=== PATIENT | male | born 1950 | race Hispanic/Latino ===

== ENCOUNTER 2018-03-14 14:33 | Outpatient (CLI) | payer OTHER | END 2018-03-14 14:34 | disposition home or self-care (01) | LOC: DTY/OP 14:33 | PROVIDERS: ATTEND Family Medicine | DX: E66.9 Obesity, unspecified (principal); I10 Essential (primary) hypertension | CPT/HCPCS: 97802 ==

== ENCOUNTER 2018-06-05 14:38 | Outpatient (CLI) | payer OTHER ==
[2018-06-05 16:41] LABS: Hemoglobin 14.3 g/dL (14.0-18.0); Mean Corpuscular HGB CONC 31.6 g/dL (32.0-36.0); Mean Corpuscular Hemoglobin 30.7 pg (27.0-31.0); Mean Platelet Volume 8.2 fL (7.4-10.4); Platelet Count 273 thou/uL (130-400); RBC Distribution Width 11.8 % (11.5-14.5); Red Blood Cell (RBC) Count 4.65 mill/uL (4.70-6.10); White Blood Cell (WBC) Count 7.2 thou/uL (4.8-10.8)
[2018-06-05 16:53] LABS: Anion Gap 14 mmol/L (10-20); BUN (Urea Nitrogen) 18 mg/dL (8.4-25.7); Calc. Creatinine Clearance 0 mL/min (70-130); Calcium 9.2 mg/dL (7.8-10.44); Carbon Dioxide 23 mmol/L (23-31); Chloride 105 mmol/L (98-107); Estimated GFR-MDRD 81; Glucose 91 mg/dL (80-115); Potassium 5.1 mmol/L (3.5-5.1); Sodium 137 mmol/L (136-145)
[2018-06-05 17:03] LABS: Eosinophils 2 % (0-10); Lymphocytes 34 % (21-51); MDiff Complete? YES; Monocytes 2 % (0-10); Neutrophil 61 % (42-75); PLT Morphology Comment Appears Adequate; RBC Morphology Normal
--- NOTE | 2018-06-06 12:37 | EKG ---
Test Reason : Blood Pressure : / mmHG Vent. Rate : 070 BPM Atrial Rate : 070 BPM P-R Int : 162 ms QRS Dur : 096 ms QT Int : 382 ms P-R-T Axes : 041 058 -12 degrees QTc Int : 412 ms Normal sinus rhythm Cannot rule out Inferior infarct , age undetermined Abnormal ECG When compared with ECG of 07-DEC-2000 06:49, Minimal criteria for Inferior infarct are now Present ST no longer elevated in Inferior leads T wave inversion now evident in Inferior leads Confirmed by DR. Maria Ines JAIN ([id number]) on 06/06/2018 12:36:56 PM Referred By: STACY Confirmed By:DR. Maria Ines JAIN
== END 2018-06-05 14:39 | disposition home or self-care (01) ==
LOC: LABBT 14:38
PROVIDERS: ATTEND Surgery
DX: Z01.818 Encounter for other preprocedural examination (principal); K40.90 Unilateral inguinal hernia, without obstruction or gangrene, not specified as recurrent
CPT/HCPCS: 80048; 85025; 93005; 93010

== ENCOUNTER 2018-06-14 06:02 | Day surgery (SDC) | payer OTHER ==
[2018-06-05 14:54] VITALS: BMI 34.0
[2018-06-14] MEDS ORDERED: CEFAZOLIN 2 GM/50 ML BAG ONE (06:47)
[2018-06-14] MEDS ORDERED: Bupivacaine/Epinephrine 0.25% 30 ML VIAL ONE (09:00)
[2018-06-14] MEDS ORDERED: Bupivacaine PF 0.5% 30 ML VIAL ONE ×2 (09:00→10:42)
[2018-06-14] MEDS ORDERED: Fentanyl 100 MCG/2 ML VIAL ONE ×3 (09:02→12:21)
[2018-06-14] MEDS ORDERED: HYDROmorphone 2 MG/ML VIAL ONE (11:11)
[2018-06-14] MEDS ORDERED: Lidocaine 1% PF 5 ML VIAL ONE (15:00)
[2018-06-14] MEDS ORDERED: Ondansetron PF 4 MG/2 ML Vial ONE (15:00)
[2018-06-14] MEDS ORDERED: Dexamethasone 20 MG/5 ML VIAL ONE (15:00)
[2018-06-14] MEDS ORDERED: PROPOFOL 200 MG/20 ML VIAL ONE (15:00)
[2018-06-14] MEDS ORDERED: Ketorolac Tromethamine 30 MG/ML VIAL ONE (15:00)
--- NOTE | 2018-06-15 09:24 | PDOC.OP ---
Operative Note - Operative Note Operative Note: PROCEDURE: Inguinal hernia repair SURGEON: Taryn Zambrano M.D. DATE OF PROCEDURE: 06/14/2018 PREOPERATIVE DIAGNOSIS: Inguinal hernia, right POSTOPERATIVE DIAGNOSIS: Inguinal hernia,, right, indirect HISTORY: Patient with swelling in the right groin which goes away when he lies flat. He has a large inguinal hernia on examination on that side with no palpable hernia on the opposite side. He had symptoms of benign prostatic hypertrophy and was started on Flomax with improvement in the symptoms. Recommendation was made to proceed with right inguinal hernia repair with mesh. FINDINGS: Large indirect hernia defect containing small intestine. 2 large cord lipomas resected. Repaired with extra large PerFix plug and patch. DESCRIPTION OF PROCEDURE: After informed consent was obtained and appropriate preoperative antibiotics were administered, the patient was taken to the operating room, placed in the supine position and general endotracheal anesthesia was administered. The inguinal area was prepped and draped in the standard sterile fashion and local anesthesia was infused to the skin and subcutaneous tissues overlying the inguinal canal. An oblique skin incision was made in the direction of the skin crease. Dissection was carried down to the external oblique aponeurosis which was carefully incised in the direction of its fibers through the enlarged external ring. The aponeurosis was mobilized off the underlying structures. The ilioinguinal nerve was attenuated and would've required extensive manipulation to preserve so this was divided high. The inguinal cord was mobilized at the level of the pubic tubercle. The cremasteric muscles were divided and the cord contents and floor of the canal were carefully examined. A large indirect hernia was identified. The patient also had 2 large cord lipomas which were dissected free down to level of the internal ring, ligated and excised. The hernia sac was dissected free of the cord contents down to the level of the peritoneal reflection. The hernia sac was opened and the contents reduced into the abdominal cavity. The base of the hernia sac was encircled with a pursestring 3-0 Vicryl suture. The pursestring suture was secured and the hernia sac was resected. The base of the hernia sac was tied to the base of the Perfix plug. The Perfix plug was then placed into the internal ring and was tacked down to the internal oblique in a couple of locations. The patch was then secured to the pubic tubercle inferiorly, to the shelving edge of the inguinal ligament laterally, and secured at intervals to the internal oblique medially. A keyhole slit was created and placed around the inguinal cord contents and secured, and the ends secured to each other and to the underlying plug. The operative site was irrigated and hemostasis verified. Local anesthesia was infused into the muscles of the internal oblique medially. The On-Q pump was then tunneled into the wound and placed into the inguinal canal and primed. The external oblique aponeurosis was then closed with 2-0 Vicryl suture, taking care not to pull up any of the underlying cord contents or the On-Q pump tubing into the closure, and the remainder of the local was infused into the subcutaneous tissues circumferentially and to the skin. Claudia's fascia was reapproximated with 3-0 Monocryl sutures and the skin was closed with 4-0 subcuticular Monocryl sutures. Dermabond dressings were placed and the On-Q tubing secured with a Steri-Strip, and dressed with Dermabond and Tegaderm. The patient was extubated and taken to the recovery room in good condition. Estimated blood loss was minimal. There were no complications. Specimen is hernia sac.
== END 2018-06-14 14:35 | disposition home or self-care (01) ==
LOC: SDC 06:02
PROVIDERS: ATTEND Surgery
PROC: 0YQ50ZZ Repair Right Inguinal Region, Open Approach (ICD-10-PCS; principal; 2018-06-14)
DX: K40.90 Unilateral inguinal hernia, without obstruction or gangrene, not specified as recurrent (principal); D17.6 Benign lipomatous neoplasm of spermatic cord; I10 Essential (primary) hypertension; E66.9 Obesity, unspecified; K21.9 Gastro-esophageal reflux disease without esophagitis; N40.0 Benign prostatic hyperplasia without lower urinary tract symptoms; Z79.82 Long term (current) use of aspirin; Z79.899 Other long term (current) drug therapy
CPT/HCPCS: 88302; 96374; A4306; C1781; J1100; J1170; J1885; J2001; J2405; J2704; J3010; S0020

== ENCOUNTER 2021-11-22 09:33 | Emergency (ER) | payer BC | END 2021-11-22 10:45 | disposition home or self-care (01) | LOC: ERS 09:33 | DX: M54.41 Lumbago with sciatica, right side (principal); I10 Essential (primary) hypertension | CPT/HCPCS: 99283 ==

== ENCOUNTER 2022-02-03 03:21 | Emergency (ER) | payer BC ==
[2022-02-03] MEDS ORDERED: Ondansetron PF 4 MG/2 ML Vial ONE (03:54)
[2022-02-03] MEDS ORDERED: Morphine 4 MG/ML VIAL ONE ×3 (03:54→06:56)
[2022-02-03 04:49] LABS: ALT (SGPT) 17 U/L (8-55); AST (SGOT) 19 U/L (5-34); Albumin 4.3 g/dL (3.4-4.8); Alkaline Phosphatase 61 U/L (40-110); Anion Gap 17 mmol/L (10-20); BUN (Urea Nitrogen) 21 mg/dL (8.4-25.7); Bilirubin, Total 0.3 mg/dL (0.2-1.2); Calc. Creatinine Clearance 0 mL/min (70-130); Calcium 9.8 mg/dL (7.8-10.44); Carbon Dioxide 24 mmol/L (23-31); Chloride 102 mmol/L (98-107); Estimated GFR 48; Globulin 3.7 g/dL (2.4-3.5); Glucose 132 mg/dL (83-110); Lipase 27 U/L (8-78); Potassium 4.4 mmol/L (3.5-5.1); Sodium 139 mmol/L (136-145)
[2022-02-03 05:16] LABS: #Lymphocytes 1.1 thou/uL (1.20-3.40); #Monocytes 0.6 thou/uL (0.11-0.59); %Basophils 0.1 % (0.0-1.0); %Eosinophils 0.2 % (0.0-10.0); %Lymphocytes 6.5 % (21.0-51.0); %Monocytes 3.8 % (0.0-10.0); %Neutrophils 89.4 % (42.0-75.0); Anisocytosis SLIGHT = 6-15 cells (100X) (0-5/hpf); Hemoglobin 10.1 g/dL (14.0-18.0); MDiff Complete? YES; Mean Corpuscular HGB CONC 29.7 g/dL (32.0-36.0); Mean Corpuscular Hemoglobin 21.1 pg (27.0-31.0); Mean Platelet Volume 9.2 fL (7.4-10.4); Platelet Count 500 thou/uL (130-400); RBC Distribution Width 18.8 % (11.5-14.5); Red Blood Cell (RBC) Count 4.79 mill/uL (4.70-6.10); White Blood Cell (WBC) Count 16.8 thou/uL (4.8-10.8)
[2022-02-03 06:29] LABS: Bilirubin Negative (Negative); Blood, Urine Negative (Negative); Clarity Clear (Clear); Glucose, Urine (Dipstick) Normal (Negative); Ketone, Urine 10 mg/dL (Negative); Leukocyte Negative Leu/uL (Negative); Nitrite Negative (Negative); Protein, Urine (Dipstick) Negative (Neg-Trace); Specific Gravity, Urine 1.043 (1.002-1.036); Urobilinogen Normal mg/dL (Less than 2); pH, Urine 7.5 (5.0-9.0)
[2022-02-03] MEDS ORDERED: HYDROcodone/Acetaminophen 5/325 mg Tablet ONE (07:03)
[2022-02-03] MEDS ORDERED: Iopamidol 370 76% 100 ML VIAL ONE (08:00)
== END 2022-02-03 08:06 | disposition home or self-care (01) ==
LOC: ERS 03:21
DX: N13.2 Hydronephrosis with renal and ureteral calculous obstruction (principal); I10 Essential (primary) hypertension; Z79.899 Other long term (current) drug therapy
CPT/HCPCS: 74177; 80053; 81003; 83605; 83690; 85025; 87077; 87086; 87186; 93005; 96374; 96375; 96376; J2270; J2405; Q9967

== ENCOUNTER 2022-02-07 16:42 | Inpatient (IN) | payer BC, MEDICARE ==
[2022-02-07] MEDS ORDERED: Cefepime 2 GM VIAL ONE ×2 (17:09→19:36)
[2022-02-07 17:22] LABS: Hemoglobin 8.9 g/dL (14.0-18.0); Mean Corpuscular HGB CONC 30.1 g/dL (32.0-36.0); Mean Corpuscular Hemoglobin 21.2 pg (27.0-31.0); Mean Corpuscular Volume 70.6 fL (78.0-98.0); Mean Platelet Volume 10.8 fL (7.4-10.4); Platelet Count 311 thou/uL (130-400); RBC Distribution Width 18.1 % (11.5-14.5); Red Blood Cell (RBC) Count 4.19 mill/uL (4.70-6.10)
[2022-02-07 17:29] LABS: INR-International Normal Ratio 1.2; PTT 31.5 sec (22.9-36.1); Prothrombin Time 15.5 sec (12.0-14.7)
[2022-02-07] MEDS ORDERED: VANCOMYCIN 2 GRAM/500 ML BAG 2 GM in Premix Bag 1 BAG IVPB SCH (17:45)
[2022-02-07 17:47] LABS: ALT (SGPT) 23 U/L (8-55); AST (SGOT) 53 U/L (5-34); Albumin 3.2 g/dL (3.4-4.8); Alkaline Phosphatase 55 U/L (40-110); Anion Gap 17 mmol/L (10-20); BUN (Urea Nitrogen) 28 mg/dL (8.4-25.7); Band 12 % (5-11); Bilirubin, Total 0.5 mg/dL (0.2-1.2); CK (CPK) 39 U/L (30-200); Calc. Creatinine Clearance 0 mL/min (70-130); Carbon Dioxide 23 mmol/L (23-31); Chloride 97 mmol/L (98-107); Estimated GFR 37; Globulin 4.6 g/dL (2.4-3.5); Glucose 105 mg/dL (83-110); Hypochromia SLIGHT = 6-15 cells (100X) (0-5/hpf); Lipase 80 U/L (8-78); Lymphocytes 6 % (21-51); MDiff Complete? YES; Microcytosis MODERATE=15-30 cells (100X) (0-5/hpf); Monocytes 15 % (0-10); Neutrophil 67 % (42-75); Platelet Morphology Comment Appears Adequate; Polychromasia SLIGHT = 2-3 cells (100X) (0-2/hpf); Potassium 5.3 mmol/L (3.5-5.1); Protein, Total 7.8 g/dL (5.8-8.1); Sodium 132 mmol/L (136-145)
[2022-02-07 18:02] LABS: CKMB 0.4 ng/mL (0-6.6)
[2022-02-07 19:06] LABS: Bilirubin Negative (Negative); Blood, Urine 1+ (Negative); Clarity Turbid (Clear); Glucose, Urine (Dipstick) Normal (Negative); Ketone, Urine Trace mg/dL (Negative); Leukocyte 500 Leu/uL (Negative); Nitrite Negative (Negative); Protein, Urine (Dipstick) 50 mg/dL (Neg-Trace); Specific Gravity, Urine 1.024 (1.002-1.036); Squamous Epithelial None Seen HPF (0-3); Urobilinogen Normal mg/dL (Less than 2); WBC/HPF Greater than 50 HPF (0-3)
[2022-02-07 19:07] LABS: Bacteria/HPF 1+ HPF (None Seen)
[2022-02-07] MEDS ORDERED: Aspirin Chewable 81 MG TAB ONE (19:29)
[2022-02-07 19:34] LABS: SARS-CoV-2 NAA Rapid Test Not Detected (NotDetected)
[2022-02-07] MEDS ORDERED: Sodium Chloride 0.9% 100 ML ONE (19:36)
[2022-02-07] MEDS ORDERED: HYDROcodone/Acetaminophen 5/325 mg Tablet PO PRN (20:20)
[2022-02-07] MEDS ORDERED: Promethazine HCl 25 MG/ML VIAL IM PRN (20:20)
[2022-02-07] MEDS ORDERED: Ondansetron HCl/PF 4 MG/2 ML Vial IVP PRN (20:20)
[2022-02-07] MEDS ORDERED: Ondansetron PF 4 MG/2 ML Vial IVP PRN (20:20)
[2022-02-07] MEDS ORDERED: Acetaminophen 325 MG TAB PO PRN (20:20)
[2022-02-07] MEDS ORDERED: Promethazine HCl 25 MG/ML VIAL IVPB PRN (20:20)
[2022-02-07] MEDS ORDERED: Ondansetron ODT 4 MG TAB PO PRN (20:20)
[2022-02-07] MEDS ORDERED: Iopamidol 30 ML ONE (20:24)
[2022-02-07] MEDS ORDERED: Fentanyl 100 MCG/2 ML VIAL ONE ×2 (20:39→22:30)
[2022-02-07] MEDS ORDERED: Phenylephrine 10 MG/ML VIAL ONE (20:58)
[2022-02-07] MEDS ORDERED: Dexamethasone 20 MG/5 ML VIAL ONE (20:58)
[2022-02-07] MEDS ORDERED: Ondansetron PF 4 MG/2 ML Vial ONE (20:58)
[2022-02-07] MEDS ORDERED: PROPOFOL 200 MG/20 ML VIAL ONE (20:58)
[2022-02-07] MEDS ORDERED: Lidocaine 1% PF 5 ML VIAL ONE (20:58)
[2022-02-07] MEDS ORDERED: Lorazepam 2 MG/ML VIAL IM PRN (20:59)
[2022-02-07] MEDS ORDERED: Lorazepam 1 MG TAB PO PRN (20:59)
[2022-02-07] MEDS ORDERED: Vancomycin 1 GM in Premix Bag 1 BAG IVPB SCH (21:00)
[2022-02-07] MEDS ORDERED: Thiamine HCl 200 MG/2 ML VIAL SLOW IVP SCH (21:00)
[2022-02-07] MEDS ORDERED: Electrolyte Replacement Protocol 1 EACH FS SCH (21:00)
[2022-02-07] MEDS ORDERED: Lorazepam 1 MG TAB PO SCH (21:00)
[2022-02-07] MEDS ORDERED: Folic Acid 1 MG TAB PO SCH (21:15)
[2022-02-07] MEDS ORDERED: Multivit, Therapeutic 1 TAB PO SCH (21:15)
[2022-02-07 23:32] VITALS: BMI 33.2
[2022-02-07 23:41] LABS: Amphetamine Not Detected (NotDetected); Barbiturates Screen Not Detected (NotDetected); Benzodiazepine Screen Not Detected (NotDetected); Cocaine Metabolite Screen Not Detected (NotDetected); Methadone Not Detected (NotDetected); Methamphetamine Not Detected (NotDetected); Opiate Screen Detected (NotDetected); Oxycodone Screen Not Detected (NotDetected); Phencyclidine (PCP) Not Detected (NotDetected); THC/Cannabinoid Screen Not Detected (NotDetected); Tricyclic Screen Not Detected (NotDetected)
[2022-02-08] MEDS: Sodium Chloride 0.9% 1,000 ML IV SCH ×3 (00:28→09:37)
[2022-02-08 00:33] LABS: Phosphorus 3.4 mg/dL (2.3-4.7)
[2022-02-08 00:40] LABS: Troponin I 0.043 ng/mL (< 0.028)
[2022-02-08 00:55] LABS: ALT (SGPT) 24 U/L (8-55); AST (SGOT) 25 U/L (5-34); Alkaline Phosphatase 52 U/L (40-110); Anion Gap 16 mmol/L (10-20); BUN (Urea Nitrogen) 28 mg/dL (8.4-25.7); Bilirubin, Total 0.3 mg/dL (0.2-1.2); Calc. Creatinine Clearance 59 mL/min (70-130); Calcium 8.1 mg/dL (7.8-10.44); Carbon Dioxide 22 mmol/L (23-31); Chloride 105 mmol/L (98-107); Estimated GFR 43; Globulin 2.7 g/dL (2.4-3.5); Glucose 114 mg/dL (83-110); Magnesium 2.3 mg/dL (1.6-2.6); Potassium 4.8 mmol/L (3.5-5.1); Protein, Total 5.7 g/dL (5.8-8.1); Sodium 138 mmol/L (136-145)
[2022-02-08] MEDS ORDERED: Cefepime 2 GM in Sodium Chloride 0.9% 100 ML IVPB SCH (05:00)
[2022-02-08] MEDS: Lorazepam 1 MG TAB PO SCH ×3 (05:32→21:58)
[2022-02-08 06:02] LABS: #Lymphocytes 0.7 thou/uL (1.20-3.40); #Monocytes 0.3 thou/uL (0.11-0.59); #Neutrophils 11.6 thou/uL (1.40-6.50); %Basophils 0.1 % (0.0-1.0); %Eosinophils 0.1 % (0.0-10.0); %Lymphocytes 5.5 % (21.0-51.0); %Monocytes 2.3 % (0.0-10.0); Hemoglobin 8.7 g/dL (14.0-18.0); Mean Corpuscular Hemoglobin 21.2 pg (27.0-31.0); Mean Corpuscular Volume 73.1 fL (78.0-98.0); Mean Platelet Volume 9.9 fL (7.4-10.4); Platelet Count 310 thou/uL (130-400); RBC Distribution Width 18.4 % (11.5-14.5); Red Blood Cell (RBC) Count 4.09 mill/uL (4.70-6.10); White Blood Cell (WBC) Count 12.6 thou/uL (4.8-10.8)
[2022-02-08 06:15] LABS: ALT (SGPT) 25 U/L (8-55); AST (SGOT) 25 U/L (5-34); Albumin 3.1 g/dL (3.4-4.8); Alkaline Phosphatase 56 U/L (40-110); Anion Gap 14 mmol/L (10-20); BUN (Urea Nitrogen) 25 mg/dL (8.4-25.7); Bilirubin, Total 0.3 mg/dL (0.2-1.2); Calc. Creatinine Clearance 68 mL/min (70-130); Calcium 8.6 mg/dL (7.8-10.44); Carbon Dioxide 22 mmol/L (23-31); Chloride 106 mmol/L (98-107); Estimated GFR 51; Globulin 3.7 g/dL (2.4-3.5); Glucose 121 mg/dL (83-110); Potassium 4.4 mmol/L (3.5-5.1); Protein, Total 6.8 g/dL (5.8-8.1); Sodium 138 mmol/L (136-145)
[2022-02-08 06:18] LABS: Troponin I 0.024 ng/mL (< 0.028)
[2022-02-08 11:31] LABS: Syphilis Antibody Nonreactive (Nonreactive); Syphilis Antibody Index 0.13 S/CO (<1.00 Non-Reactive)
[2022-02-08] MEDS: Folic Acid 1 MG TAB PO SCH (12:31)
[2022-02-08] MEDS: Multivit, Therapeutic 1 TAB PO SCH (12:31)
[2022-02-08] MEDS: Thiamine HCl 200 MG/2 ML VIAL SLOW IVP SCH ×2 (15:59→21:57)
[2022-02-08] MEDS: Cefepime 1 GM in Sodium Chloride 0.9% 100 ML IVPB SCH (16:01)
[2022-02-08] MEDS ORDERED: Lorazepam 1 MG TAB PO PRN (20:59)
[2022-02-08] MEDS ORDERED: Vancomycin 1.5 GRAM/300 ML BAG 1.5 GM in Premix Bag 1 BAG IVPB SCH (21:00)
[2022-02-09] MEDS: Lorazepam 1 MG TAB PO SCH ×4 (01:05→18:20)
[2022-02-09] MEDS: Sodium Chloride 0.9% 1,000 ML IV SCH ×4 (03:38→14:14)
[2022-02-09] MEDS: Cefepime 1 GM in Sodium Chloride 0.9% 100 ML IVPB SCH (05:31)
[2022-02-09 08:39] LABS: Hemoglobin 8.3 g/dL (14.0-18.0); Mean Corpuscular HGB CONC 29.1 g/dL (32.0-36.0); Mean Corpuscular Hemoglobin 21.2 pg (27.0-31.0); Mean Corpuscular Volume 72.9 fL (78.0-98.0); Mean Platelet Volume 9.8 fL (7.4-10.4); Platelet Count 364 thou/uL (130-400); RBC Distribution Width 18.7 % (11.5-14.5); Red Blood Cell (RBC) Count 3.92 mill/uL (4.70-6.10); White Blood Cell (WBC) Count 16.2 thou/uL (4.8-10.8)
[2022-02-09 08:57] LABS: ALT (SGPT) 28 U/L (8-55); AST (SGOT) 24 U/L (5-34); Albumin 2.9 g/dL (3.4-4.8); Alkaline Phosphatase 47 U/L (40-110); Anion Gap 15 mmol/L (10-20); BUN (Urea Nitrogen) 24 mg/dL (8.4-25.7); Bilirubin, Total 0.3 mg/dL (0.2-1.2); Calc. Creatinine Clearance 97 mL/min (70-130); Calcium 8.6 mg/dL (7.8-10.44); Carbon Dioxide 23 mmol/L (23-31); Chloride 109 mmol/L (98-107); Estimated GFR 78; Globulin 3.3 g/dL (2.4-3.5); Glucose 109 mg/dL (83-110); Magnesium 2.3 mg/dL (1.6-2.6); Potassium 3.7 mmol/L (3.5-5.1); Protein, Total 6.2 g/dL (5.8-8.1); Sodium 143 mmol/L (136-145)
[2022-02-09 09:22] LABS: Band 11 % (5-11); Hypochromia SLIGHT = 6-15 cells (100X) (0-5/hpf); Lymphocytes 6 % (21-51); MDiff Complete? YES; Microcytosis SLIGHT = 6-15 cells (100X) (0-5/hpf); Monocytes 8 % (0-10); Neutrophil 75 % (42-75); Platelet Morphology Comment Appears Adequate; Polychromasia SLIGHT = 2-3 cells (100X) (0-2/hpf)
[2022-02-09] MEDS: Folic Acid 1 MG TAB PO SCH (09:39)
[2022-02-09] MEDS: Multivit, Therapeutic 1 TAB PO SCH (09:39)
[2022-02-09] MEDS: Thiamine HCl 200 MG/2 ML VIAL SLOW IVP SCH ×2 (09:39→15:29)
[2022-02-09] MEDS: Tamsulosin HCl 0.4 MG CAP PO SCH (09:39)
[2022-02-09] MEDS ORDERED: Cefepime 2 GM in Sodium Chloride 0.9% 100 ML IVPB SCH (17:00)
[2022-02-09] MEDS ORDERED: AMPicillin 2 MG in Syringe 0 ML SLOW IVP SCH (18:00)
[2022-02-09] MEDS: AMPicillin 2 GM in Sodium Chloride 0.9% 100 ML IVPB SCH (18:32)
[2022-02-10] MEDS: AMPicillin 2 GM in Sodium Chloride 0.9% 100 ML IVPB SCH ×4 (00:44→20:00)
[2022-02-10] MEDS: Sodium Chloride 0.9% 1,000 ML IV SCH ×3 (05:09→16:30)
[2022-02-10 06:01] LABS: ALT (SGPT) 26 U/L (8-55); AST (SGOT) 21 U/L (5-34); Albumin 2.9 g/dL (3.4-4.8); Alkaline Phosphatase 51 U/L (40-110); Anion Gap 16 mmol/L (10-20); BUN (Urea Nitrogen) 19 mg/dL (8.4-25.7); Bilirubin, Total 0.3 mg/dL (0.2-1.2); Calc. Creatinine Clearance 88 mL/min (70-130); Calcium 8.5 mg/dL (7.8-10.44); Carbon Dioxide 21 mmol/L (23-31); Chloride 109 mmol/L (98-107); Estimated GFR 69; Globulin 3.1 g/dL (2.4-3.5); Glucose 90 mg/dL (83-110); Potassium 3.9 mmol/L (3.5-5.1); Sodium 142 mmol/L (136-145)
[2022-02-10 06:31] LABS: Band 10 % (5-11); Eosinophils 2 % (0-10); Hemoglobin 8.6 g/dL (14.0-18.0); Lymphocytes 15 % (21-51); MDiff Complete? YES; Mean Corpuscular HGB CONC 28.9 g/dL (32.0-36.0); Mean Corpuscular Hemoglobin 20.8 pg (27.0-31.0); Mean Corpuscular Volume 71.9 fL (78.0-98.0); Mean Platelet Volume 10.3 fL (7.4-10.4); Monocytes 8 % (0-10); Neutrophil 65 % (42-75); Platelet Count 356 thou/uL (130-400); RBC Distribution Width 18.7 % (11.5-14.5); Red Blood Cell (RBC) Count 4.15 mill/uL (4.70-6.10); White Blood Cell (WBC) Count 15.8 thou/uL (4.8-10.8)
[2022-02-10] MEDS: Folic Acid 1 MG TAB PO SCH (10:53)
[2022-02-10] MEDS: Tamsulosin HCl 0.4 MG CAP PO SCH (10:53)
[2022-02-10] MEDS: Multivit, Therapeutic 1 TAB PO SCH (10:53)
[2022-02-11] MEDS: AMPicillin 2 GM in Sodium Chloride 0.9% 100 ML IVPB SCH ×4 (00:59→18:21)
[2022-02-11] MEDS: Sodium Chloride 0.9% 1,000 ML IV SCH ×2 (01:37→04:25)
[2022-02-11 05:21] LABS: ALT (SGPT) 31 U/L (8-55); AST (SGOT) 23 U/L (5-34); Albumin 2.5 g/dL (3.4-4.8); Alkaline Phosphatase 46 U/L (40-110); Anion Gap 13 mmol/L (10-20); BUN (Urea Nitrogen) 12 mg/dL (8.4-25.7); Bilirubin, Total 0.6 mg/dL (0.2-1.2); Calc. Creatinine Clearance 102 mL/min (70-130); Calcium 7.7 mg/dL (7.8-10.44); Carbon Dioxide 24 mmol/L (23-31); Chloride 108 mmol/L (98-107); Estimated GFR 83; Globulin 2.5 g/dL (2.4-3.5); Glucose 97 mg/dL (83-110); Potassium 3.8 mmol/L (3.5-5.1); Sodium 141 mmol/L (136-145)
[2022-02-11 06:01] LABS: Band 17 % (5-11); Hemoglobin 7.7 g/dL (14.0-18.0); Hypochromia SLIGHT = 6-15 cells (100X) (0-5/hpf); Lymphocytes 13 % (21-51); MDiff Complete? YES; Mean Corpuscular HGB CONC 29.3 g/dL (32.0-36.0); Mean Corpuscular Hemoglobin 21.4 pg (27.0-31.0); Mean Corpuscular Volume 72.8 fL (78.0-98.0); Mean Platelet Volume 8.6 fL (7.4-10.4); Monocytes 8 % (0-10); Neutrophil 62 % (42-75); Platelet Count 357 thou/uL (130-400); Platelet Morphology Comment Appears Adequate; RBC Distribution Width 18.6 % (11.5-14.5); Red Blood Cell (RBC) Count 3.58 mill/uL (4.70-6.10)
[2022-02-11] MEDS: Multivit, Therapeutic 1 TAB PO SCH (08:37)
[2022-02-11] MEDS: Folic Acid 1 MG TAB PO SCH (08:37)
[2022-02-11] MEDS: Enoxaparin Sodium 40 MG/0.4 ML SYRINGE SC SCH (08:37)
[2022-02-11] MEDS: Tamsulosin HCl 0.4 MG CAP PO SCH (08:37)
[2022-02-12] MEDS: AMPicillin 2 GM in Sodium Chloride 0.9% 100 ML IVPB SCH ×4 (00:52→19:19)
[2022-02-12 05:39] LABS: ALT (SGPT) 30 U/L (8-55); AST (SGOT) 23 U/L (5-34); Albumin 2.5 g/dL (3.4-4.8); Alkaline Phosphatase 45 U/L (40-110); Anion Gap 16 mmol/L (10-20); BUN (Urea Nitrogen) 9 mg/dL (8.4-25.7); Bilirubin, Total 0.4 mg/dL (0.2-1.2); Calc. Creatinine Clearance 111 mL/min (70-130); Carbon Dioxide 21 mmol/L (23-31); Chloride 108 mmol/L (98-107); Estimated GFR 91; Glucose 99 mg/dL (83-110); Potassium 3.5 mmol/L (3.5-5.1); Protein, Total 5.5 g/dL (5.8-8.1); Sodium 141 mmol/L (136-145)
[2022-02-12 06:25] LABS: Anisocytosis SLIGHT = 6-15 cells (100X) (0-5/hpf); Band 16 % (5-11); Eosinophils 4 % (0-10); Hemoglobin 7.3 g/dL (14.0-18.0); Lymphocytes 12 % (21-51); MDiff Complete? YES; Mean Corpuscular HGB CONC 28.9 g/dL (32.0-36.0); Mean Corpuscular Hemoglobin 20.9 pg (27.0-31.0); Mean Corpuscular Volume 72.3 fL (78.0-98.0); Monocytes 9 % (0-10); Myelocyte 2 % (0-0); Neutrophil 57 % (42-75); Platelet Count 350 thou/uL (130-400); Platelet Morphology Comment Appears Adequate; RBC Distribution Width 18.6 % (11.5-14.5); Red Blood Cell (RBC) Count 3.49 mill/uL (4.70-6.10); White Blood Cell (WBC) Count 14.7 thou/uL (4.8-10.8)
[2022-02-12] MEDS ORDERED: Potassium Chloride 20 MEQ TAB PO SCH (06:30)
[2022-02-12] MEDS: Folic Acid 1 MG TAB PO SCH (08:26)
[2022-02-12] MEDS: Tamsulosin HCl 0.4 MG CAP PO SCH (08:26)
[2022-02-12] MEDS: Enoxaparin Sodium 40 MG/0.4 ML SYRINGE SC SCH (08:27)
[2022-02-12] MEDS: Multivit, Therapeutic 1 TAB PO SCH (08:27)
[2022-02-13] MEDS: AMPicillin 2 GM in Sodium Chloride 0.9% 100 ML IVPB SCH ×3 (00:10→11:49)
[2022-02-13 05:23] LABS: Reticulocyte Count 2.4 % (0.5-1.5)
[2022-02-13 05:24] LABS: #Eosinphils 0.4 thou/uL (0.0-0.7); #Lymphocytes 1.8 thou/uL (1.20-3.40); #Monocytes 1.3 thou/uL (0.11-0.59); #Neutrophils 9.4 thou/uL (1.40-6.50); %Basophils 0.1 % (0.0-1.0); %Eosinophils 2.8 % (0.0-10.0); %Lymphocytes 13.6 % (21.0-51.0); %Monocytes 10.2 % (0.0-10.0); %Neutrophils 73.2 % (42.0-75.0); Hemoglobin 7.8 g/dL (14.0-18.0); Mean Corpuscular HGB CONC 29.3 g/dL (32.0-36.0); Mean Corpuscular Hemoglobin 21.5 pg (27.0-31.0); Mean Corpuscular Volume 73.5 fL (78.0-98.0); Mean Platelet Volume 8.7 fL (7.4-10.4); Platelet Count 397 thou/uL (130-400); RBC Distribution Width 18.5 % (11.5-14.5); Red Blood Cell (RBC) Count 3.64 mill/uL (4.70-6.10); White Blood Cell (WBC) Count 12.9 thou/uL (4.8-10.8)
[2022-02-13 05:37] LABS: ALT (SGPT) 27 U/L (8-55); AST (SGOT) 19 U/L (5-34); Albumin 2.6 g/dL (3.4-4.8); Alkaline Phosphatase 43 U/L (40-110); Anion Gap 15 mmol/L (10-20); BUN (Urea Nitrogen) 8 mg/dL (8.4-25.7); Bilirubin, Total 0.3 mg/dL (0.2-1.2); Calc. Creatinine Clearance 103 mL/min (70-130); Calcium 8.1 mg/dL (7.8-10.44); Carbon Dioxide 23 mmol/L (23-31); Chloride 107 mmol/L (98-107); Estimated GFR 84; Glucose 99 mg/dL (83-110); Iron 14 ug/dL (65-175); Potassium 3.6 mmol/L (3.5-5.1); Protein, Total 5.6 g/dL (5.8-8.1); Sodium 141 mmol/L (136-145)
[2022-02-13] MEDS: Multivit, Therapeutic 1 TAB PO SCH (08:12)
[2022-02-13] MEDS: Folic Acid 1 MG TAB PO SCH (08:12)
[2022-02-13] MEDS: Tamsulosin HCl 0.4 MG CAP PO SCH (08:12)
[2022-02-13] MEDS: Enoxaparin Sodium 40 MG/0.4 ML SYRINGE SC SCH (08:13)
[2022-02-13 08:49] VITALS: BP 142/87; TEMP 98.4
[2022-02-15] MEDS ORDERED: Thiamine 100 MG TAB PO SCH (21:00)
== END 2022-02-13 13:10 | disposition home or self-care (01) | DRG 854 ==
LOC: ERS 16:42 → T4-A 20:27 → NEURO 02-08 14:56 → MSONC 02-10 20:11
PROVIDERS: ADMIT Family Medicine; ATTEND Family Medicine
PROC: 0T778DZ Dilation of Left Ureter with Intraluminal Device, Via Natural or Artificial Opening Endoscopic (ICD-10-PCS; principal; 2022-02-09)
PROC: BT1F1ZZ Fluoroscopy of Left Kidney, Ureter and Bladder using Low Osmolar Contrast (ICD-10-PCS; 2022-02-09)
DX: A41.81 Sepsis due to Enterococcus (principal); N13.6 Pyonephrosis; N17.9 Acute kidney failure, unspecified; N30.00 Acute cystitis without hematuria; Z20.822 Contact with and (suspected) exposure to COVID-19; D50.9 Iron deficiency anemia, unspecified; F10.10 Alcohol abuse, uncomplicated; I10 Essential (primary) hypertension; M54.30 Sciatica, unspecified side; E87.5 Hyperkalemia; R77.8 Other specified abnormalities of plasma proteins; K44.9 Diaphragmatic hernia without obstruction or gangrene; R47.1 Dysarthria and anarthria; I08.1 Rheumatic disorders of both mitral and tricuspid valves; Z28.21 Immunization not carried out because of patient refusal; Z87.442 Personal history of urinary calculi; Z90.49 Acquired absence of other specified parts of digestive tract; Z98.890 Other specified postprocedural states; Z98.42 Cataract extraction status, left eye; Z98.41 Cataract extraction status, right eye; Z79.899 Other long term (current) drug therapy; Z79.82 Long term (current) use of aspirin
CPT/HCPCS: 36415; 70450; 70551; 71045; 71250; 74176; 74220; 74420; 76705; 80053; 80306; 81003; 81015; 82140; 82274; 82550; 82553; 82728; 83540; 83605; 83690; 83735; 84100; 84484; 85025; 85046; 85610; 85730; 86140; 86780; 86850; 86900; 86901; 87040; 87077; 87086; 87186; 93005; 93306; C2617; J0290; J0692; J1100; J1650; J2370; J2405; J2704; J3010; J3370; J3411; J3490; J7050; Q9967; U0002

== ENCOUNTER 2022-02-23 07:49 | Outpatient (CLI) | payer BC, MEDICARE ==
[2022-02-23 10:04] LABS: Bilirubin Neg (Negative); Blood, Urine 50 (Negative); Clarity Cloudy (Clear); Glucose, Urine (Dipstick) Normal (Negative); Ketone, Urine Negative (Negative); Leukocyte 100 (Negative); Nitrite Negative (Negative); Protein, Urine (Dipstick) 30 mg/dl (Neg-Trace); Specific Gravity, Urine 1.005 (1.002-1.036); Urobilinogen Normal mg/dL (Less than 2)
[2022-02-23 10:06] LABS: Hemoglobin 9.1 g/dL (13.5-17.5); Mean Corpuscular HGB CONC 28.9 g/dL (32.0-36.0); Mean Corpuscular Hemoglobin 21.2 pg (27.0-33.0); Mean Corpuscular Volume 73.3 fl (81.2-95.1); Mean Platelet Volume 9.6 fl (7.4-10.4); Platelet Count 716 10x3/uL (150-450); RBC Distribution Width 23.9 % (11.5-14.5)
[2022-02-23 10:25] LABS: INR-International Normal Ratio 1.1; PTT 29.4 sec (22.0-33.0); Prothrombin Time 11.7 sec (9.5-12.1)
[2022-02-23 10:27] LABS: Anion Gap 16 mmol/L (10-20); BUN (Urea Nitrogen) 16 mg/dL (8.4-25.7); Calc. Creatinine Clearance 0 mL/min (70-130); Calcium 9.5 mg/dL (7.8-10.44); Carbon Dioxide 24 mmol/L (23-31); Chloride 104 mmol/L (98-107); Estimated GFR 61; Glucose 91 mg/dL (83-110); Potassium 5.4 mmol/L (3.5-5.1); Sodium 139 mmol/L (136-145)
[2022-02-23 10:30] LABS: Squamous Epithelial 0-3 HPF (0-3)
[2022-02-23 10:31] LABS: Bacteria/HPF Rare-Few HPF (None Seen)
== END 2022-02-23 07:50 | disposition home or self-care (01) ==
LOC: LABBT 07:49
PROVIDERS: ATTEND Urology
DX: Z01.818 Encounter for other preprocedural examination (principal); N20.1 Calculus of ureter; Z20.822 Contact with and (suspected) exposure to COVID-19
CPT/HCPCS: 80048; 81001; 85027; 85610; 85730; 87086; 87811; 93005; 93010

== ENCOUNTER 2022-02-25 10:26 | Day surgery (SDC) | payer BC ==
[2022-02-24 13:34] VITALS: BMI 33.7
[2022-02-25] MEDS ORDERED: B & O ONE (11:11)
[2022-02-25] MEDS ORDERED: Iopamidol 0 ML ONE (11:20)
[2022-02-25] MEDS ORDERED: Fentanyl 100 MCG/2 ML VIAL ONE (11:22)
[2022-02-25] MEDS ORDERED: SUGAMMADEX SODIUM 200 MG/2 ML VIAL ONE (11:23)
[2022-02-25] MEDS ORDERED: Phenylephrine 10 MG/ML VIAL ONE (11:55)
[2022-02-25] MEDS ORDERED: PROPOFOL 200 MG/20 ML VIAL ONE (11:55)
[2022-02-25] MEDS ORDERED: Lidocaine 1% PF 5 ML VIAL ONE (11:55)
[2022-02-25] MEDS ORDERED: Ondansetron PF 4 MG/2 ML Vial ONE (11:55)
[2022-02-25] MEDS ORDERED: Rocuronium Bromide 10 MG/ML (10ML VIAL) ONE (11:55)
[2022-02-25] MEDS ORDERED: Dexamethasone 20 MG/5 ML VIAL ONE (11:55)
[2022-02-25] MEDS ORDERED: Glycopyrrolate 0.2 MG/ML 5 ML SYRINGE ONE (11:55)
== END 2022-02-25 15:00 | disposition home or self-care (01) ==
LOC: SDC 10:26
PROVIDERS: ATTEND Urology
PROC: 0T778DZ Dilation of Left Ureter with Intraluminal Device, Via Natural or Artificial Opening Endoscopic (ICD-10-PCS; principal; 2022-02-25)
PROC: 0TC78ZZ Extirpation of Matter from Left Ureter, Via Natural or Artificial Opening Endoscopic (ICD-10-PCS; principal; 2022-02-25)
DX: N20.1 Calculus of ureter (principal); I10 Essential (primary) hypertension; F10.10 Alcohol abuse, uncomplicated; Z79.82 Long term (current) use of aspirin; Z79.899 Other long term (current) drug therapy
CPT/HCPCS: 36415; 74420; 82365; 86850; 86900; 86901; 88300; C1713; C2617; J1100; J2370; J2405; J2704; J2710; J3010; Q9967

== ENCOUNTER 2022-05-26 15:38 | Outpatient (CLI) | payer BC | END 2022-05-26 15:39 | disposition home or self-care (01) | LOC: BICULT 15:38 | PROVIDERS: ATTEND Urology | DX: N20.0 Calculus of kidney (principal); N28.1 Cyst of kidney, acquired; R93.421 Abnormal radiologic findings on diagnostic imaging of right kidney | CPT/HCPCS: 76770 ==

== ENCOUNTER 2024-07-10 13:59 | Outpatient (CLI) | payer MEDICARE | END 2024-07-10 14:00 | disposition home or self-care (01) | LOC: CT 13:59 | PROVIDERS: ATTEND Orthopaedic Surgery | DX: M17.11 Unilateral primary osteoarthritis, right knee (principal) ==

== ENCOUNTER 2024-07-16 10:42 | Observation (INO) | payer MEDICARE ==
[2024-07-16] MEDS ORDERED: Sodium Chloride 0.9% 100 ML ONE (11:57)
[2024-07-16] MEDS ORDERED: Tranexamic Acid 1,000 MG/10 ML VIAL ONE (11:57)
[2024-07-16] MEDS ORDERED: Vancomycin (BATCH) 1.5 GM/300 ML BAG ONE (11:57)
[2024-07-16] MEDS ORDERED: EPINEPHrine 1 MG/ML VIAL ONE ×2 (11:59→13:17)
[2024-07-16] MEDS ORDERED: Bupivacaine 0.25% HCL 30 ML VIAL ONE (11:59)
[2024-07-16] MEDS ORDERED: fentaNYL 50 mcg/mL 1 mL Vial ONE ×3 (13:17→16:48)
[2024-07-16] MEDS ORDERED: Bupivacaine PF 0.5% 30 ML VIAL ONE (13:18)
[2024-07-16] MEDS ORDERED: Midazolam HCl 2 mg/2 ml Vial ONE (13:18)
[2024-07-16] MEDS ORDERED: PROPOFOL 20 ML ONE ×2 (13:21→13:33)
[2024-07-16] MEDS ORDERED: Dexamethasone 20 MG/5 ML VIAL ONE (13:22)
[2024-07-16] MEDS ORDERED: Lidocaine 1% PF 5 ML VIAL ONE (13:22)
[2024-07-16] MEDS ORDERED: Ondansetron PF 4 MG/2 ML Vial ONE (13:22)
[2024-07-16] MEDS ORDERED: Lidocaine 2% 6 ML (Jelly) SYR ONE (13:23)
[2024-07-16] MEDS ORDERED: fentaNYL PF 100 MCG/2 ML SYRINGE ONE ×3 (13:33→15:21)
[2024-07-16] MEDS ORDERED: PHENYLEPHRINE-NS 100 MCG/ML 10 ML SYRINGE ONE (13:34)
[2024-07-16] MEDS ORDERED: CEFAZOLIN 2 GM VIAL ONE (13:34)
[2024-07-16] MEDS ORDERED: Dexmedetomidine 200 MCG/2 ML VIAL ONE (14:14)
[2024-07-16] MEDS ORDERED: fentaNYL 50 mcg/mL 1 mL Vial SLOW IVP PRN (14:15)
[2024-07-16] MEDS ORDERED: HYDROcodone/Acetaminophen 10/325 mg Tablet PO PRN (14:15)
[2024-07-16] MEDS ORDERED: Ondansetron PF 4 MG/2 ML Vial IVP PRN ×2 (14:15→16:08)
[2024-07-16] MEDS ORDERED: Zolpidem Tartrate 5 MG TAB PO PRN ×2 (14:15→16:08)
[2024-07-16] MEDS ORDERED: Ropivacaine 0.2% 550 ML 550 ML NERVE BLCK SCH (14:15)
[2024-07-16] MEDS ORDERED: traMADol HCl 50 MG TAB PO PRN ×2 (14:15)
[2024-07-16] MEDS ORDERED: Promethazine HCl 25 MG/ML VIAL IM PRN ×2 (14:15→16:08)
[2024-07-16] MEDS ORDERED: ePHEDrine Sulfate 50 MG/10 ML VIAL ONE (15:10)
[2024-07-16] MEDS ORDERED: diphenhydrAMINE 25 MG CAP PO PRN (16:08)
[2024-07-16] MEDS ORDERED: Acetaminophen 325 MG TAB PO PRN (16:08)
[2024-07-16 18:08] VITALS: BMI 31.5
[2024-07-16] MEDS: Ketorolac Tromethamine 30 MG (1 mL) VIAL IVP SCH (18:17)
[2024-07-16] MEDS: Sodium Chloride 0.9% 1,000 ML IV SCH (20:53)
[2024-07-16] MEDS: Aspirin 81 mg Enteric Coated Tablet PO SCH (20:53)
[2024-07-16] MEDS: Senokot S 8.6-50 MG TAB PO SCH (20:53)
[2024-07-16] MEDS: Ferrous Gluconate 324 MG TAB PO SCH (20:53)
[2024-07-16] MEDS: HYDROcodone/Acetaminophen 10/325 mg Tablet PO PRN (20:59)
[2024-07-16] MEDS: CEFAZOLIN 2 GM in Sodium Chloride 0.9% 100 ML IVPB SCH (23:05)
[2024-07-17 03:59] VITALS: TEMP 97.6
[2024-07-17 06:51] LABS: Hematocrit 38.1 % (42.0-52.0); Mean Corpuscular HGB CONC 31.5 g/dL (32.0-36.0); Mean Corpuscular Volume 98.4 fL (78.0-98.0); Mean Platelet Volume 10.4 fL (7.4-10.4); Platelet Count 295 10x3/uL (130-400); RBC Distribution Width 12.4 % (11.5-14.5); Red Blood Cell (RBC) Count 3.87 mill/uL (4.70-6.10)
[2024-07-17 08:27] VITALS: BP 118/77
[2024-07-17] MEDS: Tamsulosin HCl 0.4 MG CAP PO SCH (08:35)
[2024-07-17] MEDS: Amlodipine 5 MG TAB PO SCH (08:36)
[2024-07-17] MEDS: FLU (Fluad Triv) TS24-25 (65UP)/MF59C/PF 45 MCG/0.5 ML Syringe IM ONE (08:36)
[2024-07-17] MEDS: Losartan 25 MG TAB PO SCH (08:36)
[2024-07-17] MEDS: Cholecalciferol 1,000 UNITS (25 MCG) TAB PO SCH (08:36)
[2024-07-17] MEDS: Multivitamin W/ Minerals 1 TAB PO SCH (08:36)
[2024-07-17] MEDS ORDERED: Multivit, Therapeutic 1 TAB PO SCH (09:00)
== END 2024-07-17 14:07 | disposition home or self-care (01) ==
LOC: SDC 10:42 → SURG B 17:46
PROVIDERS: ADMIT Orthopaedic Surgery; ATTEND Orthopaedic Surgery
PROC: 0SRC0JZ Replacement of Right Knee Joint with Synthetic Substitute, Open Approach (ICD-10-PCS; principal; 2024-07-16)
PROC: 3E0T3BZ Introduction of Anesthetic Agent into Peripheral Nerves and Plexi, Percutaneous Approach (ICD-10-PCS; 2024-07-16)
DX: M17.11 Unilateral primary osteoarthritis, right knee (principal); I10 Essential (primary) hypertension; E66.9 Obesity, unspecified; K21.9 Gastro-esophageal reflux disease without esophagitis; N40.0 Benign prostatic hyperplasia without lower urinary tract symptoms; Z68.32 Body mass index [BMI] 32.0-32.9, adult; Z79.82 Long term (current) use of aspirin; Z79.899 Other long term (current) drug therapy
CPT/HCPCS: 0055T; 27447; 64448; 36415; 85027; A4306; C1713; C1776; C1889; J0171; J0665; J1100; J1885; J2250; J2405; J2704; J2795; J3010; J3370